=== PATIENT | male | born 1955 | race Caucasian/White ===

== ENCOUNTER 2017-01-08 15:31 | Emergency (ER) | payer MEDICAID, OTHER ==
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
[2017-01-08] MEDS ORDERED: Sodium Chloride 0.9% 1,000 ML IV SCH ×2 (15:45→19:00)
[2017-01-08] MEDS ORDERED: Sodium Chloride 0.9% 10 ML Syringe FLUSH PRN (15:45)
[2017-01-08 16:04] LABS: CHLORIDE,CL 103 mmol/L (98-107); SODIUM,NA 140 mmol/L (136-145)
[2017-01-08] MEDS ORDERED: Ketorolac 30 MG/ML SDV IVPUSH ONE (16:04)
[2017-01-08] MEDS ORDERED: Lidocaine 2% with EPINEPHrine 1:100,000 20 ML MDV INJECT ONE (18:44)
[2017-01-08] MEDS ORDERED: HYDROmorphone 1 MG/ML Syringe IVPUSH ONE (18:56)
== END 2017-01-08 20:14 | disposition short-term general hospital (02) ==
LOC: VM.ED 15:31
PROC: 0HQ0XZZ Repair Scalp Skin, External Approach (ICD-10-PCS; principal; 2017-01-08)
PROC: 0HQDXZZ Repair Right Lower Arm Skin, External Approach (ICD-10-PCS; 2017-01-08)
DX: S32.031A Stable burst fracture of third lumbar vertebra, initial encounter for closed fracture (principal); S22.059A Unspecified fracture of T5-T6 vertebra, initial encounter for closed fracture; S22.089A Unspecified fracture of T11-T12 vertebra, initial encounter for closed fracture; S01.01XA Laceration without foreign body of scalp, initial encounter; S51.011A Laceration without foreign body of right elbow, initial encounter; V29.9XXA Motorcycle rider (driver) (passenger) injured in unspecified traffic accident, initial encounter
CPT/HCPCS: 12004; 36415; 51702; 70450; 72125; 72128; 72131; 80048; 80305; 81001; 82550; 83735; 84100; 85025; 96365; 96366; 96372; 96375; 99285; G0480; J1170; J1885; J7030; 12002; 12032